=== PATIENT | male | born 1975 | race Caucasian/White ===

== ENCOUNTER 2019-05-29 15:35 | Emergency (ER) | payer OTHER ==
[~2019-05-29] VITALS: Ht 170.2 cm; Wt 87.5 kg
[2019-05-29 15:40] VITALS: BP 137/83
--- NOTE | 2019-05-29 15:45 | NUR ---
PT AMBULATORY; PLACED IN CHAIR B
--- NOTE | 2019-05-29 15:48 | NUR ---
43 Y/O MALE C/O LT FIRST TOE PAIN S/P SLIPPING AND STUBBING TOE X 2 WKS AGO. PT ABLE TO AMBULATE. NOTICABLE SWELLING TO LT FIRST TOE. +CMS. CAP REFILL < 2 SECONDS. 9/10 CONSTANT SHARP PAIN. SKIN INTACT, WARM,DRY TO THE TOUCH. SITTING IN CHB CALM AND PLEASANT. HAS NOT TAKEN ANY MEDICATIONS FOR PAIN. VSS MEDHX: DENIES ALLERGIES: MANNY
--- NOTE | 2019-05-29 15:50 | NUR ---
PT TO RADIOLOGY VIA WHEELCHAIR
[2019-05-29] MEDS: IBUPROFEN 600 MG TAB PO ONE (16:26)
[2019-05-29 16:42] VITALS: BP 137/83
--- NOTE | 2019-05-29 16:43 | NUR ---
applied ortho shoe to left foot without any issues
== END 2019-05-29 16:42 | disposition home or self-care (01) ==
LOC: MED 15:35
DX: S93.502A Unspecified sprain of left great toe, initial encounter (principal); W10.9XXA Fall (on) (from) unspecified stairs and steps, initial encounter; Y93.89 Activity, other specified; Y92.89 Other specified places as the place of occurrence of the external cause; Y99.8 Other external cause status
CPT/HCPCS: 73660; 99283

== ENCOUNTER 2020-04-10 09:37 | Emergency (ER) | payer BC, OTHER ==
[~2020-04-10] VITALS: Ht 167.6 cm; Wt 87.3 kg
[2020-04-10 09:41] VITALS: BP 145/95
--- NOTE | 2020-04-10 09:50 | NUR ---
PATIENT AMBULATED TO [facility].
--- NOTE | 2020-04-10 09:55 | NUR ---
PREFER CHEST X RAY FOR WORK
--- NOTE | 2020-04-10 10:23 | NUR ---
PT TAKEN TO X RAY.
[2020-04-10 10:53] VITALS: BP 145/95
--- NOTE | 2020-04-10 10:53 | NUR ---
Patient discharged with v/s stable. Written and verbal after care instructions given and explained. Patient verbalized understanding. Ambulatory with steady gait. All questions addressed prior to discharge. Advised to follow up with PMD.
== END 2020-04-10 10:53 | disposition home or self-care (01) ==
LOC: MED 09:37
DX: F17.210 Nicotine dependence, cigarettes, uncomplicated (principal); Z71.6 Tobacco abuse counseling; Z00.00 Encounter for general adult medical examination without abnormal findings
CPT/HCPCS: 71045; 99283

== ENCOUNTER 2020-04-30 10:31 | Emergency (ER) | payer BC ==
[~2020-04-30] VITALS: Ht 167.6 cm; Wt 81.6 kg
[2020-04-30 10:37] VITALS: BP 133/79
[2020-04-30 12:10] LABS: BASOPHILS % (AUTO) 0.5 % (0.0-2.0); EOSINOPHILS # (AUTO) 0.3 K/uL (0-0.4); EOSINOPHILS % (AUTO) 3.1 % (0.0-4.0); HEMATOCRIT 41.4 % (36-52); HEMOGLOBIN 13.9 g/dL (12.0-18.0); LYMPHOCYTES # (AUTO) 4.9 K/uL (2.0-11.5); LYMPHOCYTES % (AUTO) 60.1 % (20.5-51.1); MEAN CORPUSCULAR HEMOGLOBIN 30 pg (27-31); MEAN CORPUSCULAR HGB CONC 34 g/dL (33-37); MEAN CORPUSCULAR VOLUME 90.3 fL (80-94); MONOCYTES # (AUTO) 0.6 K/uL (0.8-1.0); NEUTROPHILS # (AUTO) 2.4 K/uL (1.8-7.7); NEUTROPHILS % (AUTO) 29.3 % (42.2-75.2); PLATELET COUNT (AUTO) 340 K/uL (140-450); RED BLOOD CELL COUNT(AUTO) 4.58 MIL/uL (4.20-6.10); RED CELL DISTRIBUTION WIDTH 12.9 % (11.6-13.7); WHITE BLOOD COUNT (AUTO) 8.2 K/uL (4.8-10.8)
[2020-04-30 12:34] LABS: ANION GAP 11.5 (8-16); CARBON DIOXIDE 28.4 mmol/L (21-32); CREATININE 1.2 mg/dL (0.6-1.3); POTASSIUM 3.9 mmol/L (3.5-5.1)
[2020-04-30 13:28] VITALS: BP 107/53
== END 2020-04-30 13:30 | disposition home or self-care (01) ==
LOC: MED 10:31
DX: I10 Essential (primary) hypertension (principal); M79.10 Myalgia, unspecified site
CPT/HCPCS: 36415; 80048; 84484; 85025; 93005; 99284